=== PATIENT | female | born 1945 | race Native Hawaiian/Other Pacific Islander ===

== ENCOUNTER 2018-12-26 16:26 | Emergency (ER) | payer MEDICARE ==
[2018-12-26] MEDS ORDERED: ZOFRAN IV ONE ×2 (17:10→23:02)
[2018-12-26] MEDS ORDERED: MORPHINE IV ONE ×2 (17:10→23:02)
[2018-12-26] MEDS ORDERED: TYLENOL PO ONE (17:11)
--- NOTE | 2018-12-26 17:13 | Emergency Department Report ---
<YOGI WOLF - Last Filed: 12/26/18 18:01> ED Back Pain/Injury HPI - General Chief Complaint: Back Pain/Injury Stated Complaint: (R) LEG PAIN Time Seen by Provider: 12/26/18 17:09 Source: EMS Limitations: Language Barrier - History of Present Illness Initial Comments: 73-year-old female presents to the emergency room for lower back pain and right leg pain. Patient reports she had surgery on Thursday on her back at [facility]. Patient reports that the pain is gotten worse. Patient reports right leg pain right side back pain headache is frontal sharp and constant. Patient was given a prescription for oxycodone 5 mg extended release tramadol 50 mg Colace and Phenergan. Patient denies any recent falls. Patient reports a past medical history of diabetes and hypertension. Patient reports a past medical history of diabetes, hypertension. She currently has no known drug allergies. MD Complaint: back pain Similar Symptoms Previously: Yes Place: other (headache frontal sharp) Radiation: right leg Severity: severe Severity scale (0 -10): 10 Quality: sharp Consistency: constant Improves With: none Worsens With: none Associated Symptoms: headaches - Related Data Home Medications Medication Instructions Recorded Confirmed Last Taken Citalopram [celeXA] 20 mg PO QDAY 08/21/14 12/26/18 01/15/15 Gabapentin 300 mg PO HS 08/21/14 12/26/18 01/15/15 Lisinopril [Zestril TAB] 2.5 mg PO DAILY 08/21/14 12/26/18 01/15/15 glipiZIDE [Glucotrol] 5 mg PO QDAY 08/21/14 12/26/18 01/15/15 metFORMIN [Glucophage] 850 mg PO TID 08/21/14 12/26/18 01/15/15 Losartan [Cozaar] 25 mg PO QDAY 01/15/15 12/26/18 01/15/15 Docusate Sodium [Stool Softener] 50 mg PO QDAY 12/26/18 12/26/18 Unknown Promethazine [Phenergan] 25 mg PO Q6HR PRN 12/26/18 12/26/18 Unknown oxyCODONE [roxiCODONE] 5 mg PO Q6HR PRN 12/26/18 12/26/18 Unknown traMADol [Ultram] 50 mg PO Q6HR PRN 12/26/18 12/26/18 Unknown Previous Rx's Medication Instructions Recorded Last Taken Type Pantoprazole [Protonix TAB] 40 mg PO QDAY #30 tablet 08/22/14 01/15/15 Rx Allergies Allergy/AdvReac Type Severity Reaction Status Date / Time No Known Allergies Allergy Unverified 08/20/14 12:06 ED Review of Systems Comment: All other systems reviewed and negative ED Past Medical Hx - Past Medical History Previous Medical History?: Yes Hx Hypertension: Yes Hx Diabetes: Yes - Surgical History Past Surgical History?: Yes Additional Surgical History: back surgery - Social History Smoking Status: Unknown if ever smoked Substance Use Type: None - Medications Home Medications: Home Medications Medication Instructions Recorded Confirmed Last Taken Type Citalopram [celeXA] 20 mg PO QDAY 08/21/14 12/26/18 01/15/15 History Gabapentin 300 mg PO HS 08/21/14 12/26/18 01/15/15 History Lisinopril [Zestril TAB] 2.5 mg PO DAILY 08/21/14 12/26/18 01/15/15 History glipiZIDE [Glucotrol] 5 mg PO QDAY 08/21/14 12/26/18 01/15/15 History metFORMIN [Glucophage] 850 mg PO TID 08/21/14 12/26/18 01/15/15 History Pantoprazole [Protonix TAB] 40 mg PO QDAY #30 tablet 08/22/14 12/26/18 01/15/15 Rx Losartan [Cozaar] 25 mg PO QDAY 01/15/15 12/26/18 01/15/15 History Docusate Sodium [Stool Softener] 50 mg PO QDAY 12/26/18 12/26/18 Unknown History Promethazine [Phenergan] 25 mg PO Q6HR PRN 12/26/18 12/26/18 Unknown History oxyCODONE [roxiCODONE] 5 mg PO Q6HR PRN 12/26/18 12/26/18 Unknown History traMADol [Ultram] 50 mg PO Q6HR PRN 12/26/18 12/26/18 Unknown History ED Physical Exam - General Limitations: Language Barrier General appearance: alert, in no apparent distress - Head Head exam: Present: atraumatic, normocephalic - Eye Eye exam: Present: normal appearance - ENT ENT exam: Present: mucous membranes moist - Respiratory Respiratory exam: Present: normal lung sounds bilaterally. Absent: respiratory distress - Cardiovascular Cardiovascular Exam: Present: tachycardia - GI/Abdominal GI/Abdominal exam: Present: soft, normal bowel sounds. Absent: distended, tenderness, guarding, rebound - Extremities Exam Extremities exam: Present: normal inspection, full ROM. Absent: tenderness - Expanded Lower Extremity Exam Right Upper Leg exam: Present: tenderness (posterior) Knee exam: Present: normal inspection, full ROM Ankle exam: Present: normal inspection, full ROM. Absent: tenderness, swelling Neuro vascular tendon exam: Present: no vascular compromise. Absent: extremity cold to touch, pallor - Neurological Exam Neurological exam: Present: alert, oriented X3 - Psychiatric Psychiatric exam: Present: normal affect, normal mood - Skin Skin exam: Present: warm, dry, intact, normal color. Absent: rash ED Medical Decision Making - Lab Data Result diagrams: 12/26/18 17:24 12/26/18 17:24 - Medical Decision Making 73-year-old female presents to the emergency room for lower back pain and right leg pain. Patient reports she had surgery on Thursday on her back at [facility]. Patient reports that the pain is gotten worse. Patient reports right leg pain right side back pain headache is frontal sharp and constant. Patient was given a prescription for oxycodone 5 mg extended release tramadol 50 mg Colace and Phenergan. Patient denies any recent falls. Patient reports a past medical history of diabetes and hypertension. Patient reports a past medical history of diabetes, hypertension. She currently has no known drug allergies. Sepsis protocol has been initiated. Patient also been given morphine 4 mg IV and Zofran 4 mg IV for pain management. CT of lumbar spine has been ordered with contrast. ED Disposition Clinical Impression: Post-operative pain Low back pain Qualifiers: Chronicity: acute Back pain laterality: bilateral Sciatica presence: unspecified whether sciatica present Qualified Code(s): M54.5 - Low back pain Disposition: DC/TX-70 ANOTHER TYPE HLTHCARE Condition: Stable Referrals: PRIMARY CARE, [Primary Care Provider] - 3-5 Days <DAT GOMEZ - Last Filed: 12/28/18 06:22> ED Review of Systems ROS: Stated complaint: (R) LEG PAIN Other details as noted in HPI ED Course Vital Signs 12/26/18 12/26/18 12/26/18 16:52 16:56 17:01 Temperature 100.0 F H Pulse Rate 95 H 98 H 98 H Respiratory 20 21 21 Rate Blood Pressure 171/91 Blood Pressure 144/66 [Left] O2 Sat by Pulse 95 97 Oximetry 12/26/18 12/26/18 12/26/18 18:00 18:45 19:15 Temperature 99.0 F Pulse Rate 86 83 Respiratory 13 20 Rate Blood Pressure 157/73 126/99 Blood Pressure [Left] O2 Sat by Pulse 99 94 Oximetry 12/26/18 12/26/18 12/26/18 19:16 20:00 21:50 Temperature 98.7 F Pulse Rate 83 84 80 Respiratory 16 13 16 Rate Blood Pressure 143/66 Blood Pressure 126/99 145/61 [Left] O2 Sat by Pulse 93 94 95 Oximetry 12/26/18 12/27/18 12/27/18 23:45 00:15 00:25 Temperature Pulse Rate 79 80 90 Respiratory 22 18 15 Rate Blood Pressure 140/60 130/66 130/66 Blood Pressure [Left] O2 Sat by Pulse 95 89 Oximetry 12/27/18 12/27/18 12/27/18 01:00 02:00 03:01 Temperature Pulse Rate 96 H 96 H 84 Respiratory 19 18 18 Rate Blood Pressure 122/61 114/63 120/61 Blood Pressure [Left] O2 Sat by Pulse 96 Oximetry 12/27/18 12/27/18 12/27/18 04:00 05:19 06:07 Temperature 98.4 F Pulse Rate 81 88 86 Respiratory 15 14 17 Rate Blood Pressure 111/60 Blood Pressure 142/64 168/74 [Left] O2 Sat by Pulse 99 99 99 Oximetry 12/27/18 06:38 Temperature Pulse Rate 87 Respiratory 16 Rate Blood Pressure Blood Pressure 147/66 [Left] O2 Sat by Pulse 99 Oximetry - Consultations Consultation #1: 12/26/18 [id number] construction secretary attempted to call [facility] to find patients surgeons name to be able to transfer pt, was given housekeeper number [phone] construction secretary spoke to Romeo housekeeper at [facility] who states he will call back [phone] construction secretary spoke to ashu Waltershousekeeper at [facility] who states that he cannot get into chart [id number] construction secretary spoke to [facility] transfer line and was given number for Dr. Butts, orthopedics service number [phone] construction secretary placed a call to Dr. Butts, orthopedic service [phone] orthopedic space operations service states that PA will call back from Dr. Bonilla service [phone] placed another call, PA has still not called back [phone] construction secretary was informed by call service that they were going to try to get in touch with the Doctor since PA was not calling back [phone] call center called back and now they are going to try to call the materials and processes manager of the practice as the PA or the doctor are not responding 12/27/18 03:00 call center called again after speaking with the practice specialist is attempting again to call the PA and doctor 12/27/18 03:[address] Artis orthoatlanlianna who agrees with transfer of patient, states that Dr. Butts, her surgeon will consult on her in the AM 12/27/18 04:00 spoke with Ashish charge nurse at [facility] who states that the IMS doctor at [facility] needs to speak with Dr. Artis orthopedic 12/27/18 04:[address] Artis orthopedic she accepts transfer of patient, she was given the number to speak with ashish charge nurse at [facility] so she can speak with [facility] for acceptance and transfer 12/27/18 04:24 ashu garciahousekeeper called back and states that Dr. Zabala, [facility] accepts and resumes care of patient, will accept transfer of patient 12/27/18 04:52 pt is going to bed 478 ED Medical Decision Making - Lab Data Result diagrams: 12/26/18 17:24 12/26/18 17:24 Lab Results 12/26/18 12/26/18 12/26/18 Range/Units 17:24 17:24 17:46 WBC 9.7 (4.5-11.0) K/mm3 RBC 3.54 L (3.65-5.03) M/mm3 Hgb 11.1 (10.1-14.3) gm/dl Hct 33.5 (30.3-42.9) % MCV 95 (79-97) fl MCH 31 (28-32) pg MCHC 33 (30-34) % RDW 14.5 (13.2-15.2) % Plt Count 269 (140-440) K/mm3 Lymph % (Auto) 22.4 (13.4-35.0) % Dane % (Auto) 10.4 H (0.0-7.3) % Eos % (Auto) 0.4 (0.0-4.3) % Baso % (Auto) 0.8 (0.0-1.8) % Lymph # 2.2 (1.2-5.4) K/mm3 Dane # 1.0 H (0.0-0.8) K/mm3 Eos # 0.0 (0.0-0.4) K/mm3 Baso # 0.1 (0.0-0.1) K/mm3 Seg Neutrophils % 66.0 (40.0-70.0) % Seg Neutrophils # 6.4 (1.8-7.7) K/mm3 APTT (24.2-36.6) Sec. VBG pH (7.320-7.420) Sodium 137 (137-145) mmol/L Potassium 3.9 (3.6-5.0) mmol/L Chloride 97.7 L (98-107) mmol/L Carbon Dioxide 26 (22-30) mmol/L Anion Gap 17 mmol/L BUN 8 (7-17) mg/dL Creatinine 0.7 (0.7-1.2) mg/dL Estimated GFR > 60 ml/min BUN/Creatinine Ratio 11 % Glucose 244 H (65-100) mg/dL Lactic Acid (0.7-2.0) mmol/L Calcium 8.1 L (8.4-10.2) mg/dL Total Bilirubin 0.30 (0.1-1.2) mg/dL AST 31 (5-40) units/L ALT 26 (7-56) units/L Alkaline Phosphatase 65 (35-129) units/L Total Protein 6.9 (6.3-8.2) g/dL Albumin 3.6 L (3.9-5) g/dL Albumin/Globulin Ratio 1.1 % Urine Color (Yellow) Urine Turbidity (Clear) Urine pH (5.0-7.0) Ur Specific [place] (1.003-1.030) Urine Protein (Negative) mg/dL Urine Glucose (UA) (Negative) mg/dL Urine Ketones (Negative) mg/dL Urine Blood (Negative) Urine Nitrite (Negative) Urine Bilirubin (Negative) Urine Urobilinogen (<2.0) mg/dL Ur Leukocyte Esterase (Negative) Urine WBC (Auto) (0.0-6.0) /HPF Urine RBC (Auto) (0.0-6.0) /HPF U Epithel Cells (Auto) (0-13.0) /HPF Urine Mucus /HPF Blood Type O POSITIVE Antibody Screen Negative 12/26/18 12/26/18 12/26/18 Range/Units 17:46 17:46 19:20 WBC (4.5-11.0) K/mm3 RBC (3.65-5.03) M/mm3 Hgb (10.1-14.3) gm/dl Hct (30.3-42.9) % MCV (79-97) fl MCH (28-32) pg MCHC (30-34) % RDW (13.2-15.2) % Plt Count (140-440) K/mm3 Lymph % (Auto) (13.4-35.0) % Dane % (Auto) (0.0-7.3) % Eos % (Auto) (0.0-4.3) % Baso % (Auto) (0.0-1.8) % Lymph # (1.2-5.4) K/mm3 Dane # (0.0-0.8) K/mm3 Eos # (0.0-0.4) K/mm3 Baso # (0.0-0.1) K/mm3 Seg Neutrophils % (40.0-70.0) % Seg Neutrophils # (1.8-7.7) K/mm3 APTT 26.9 (24.2-36.6) Sec. VBG pH (7.320-7.420) Sodium (137-145) mmol/L Potassium (3.6-5.0) mmol/L Chloride (98-107) mmol/L Carbon Dioxide (22-30) mmol/L Anion Gap mmol/L BUN (7-17) mg/dL Creatinine (0.7-1.2) mg/dL Estimated GFR ml/min BUN/Creatinine Ratio % Glucose (65-100) mg/dL Lactic Acid 2.30 H* 2.10 H* (0.7-2.0) mmol/L Calcium (8.4-10.2) mg/dL Total Bilirubin (0.1-1.2) mg/dL AST (5-40) units/L ALT (7-56) units/L Alkaline Phosphatase (35-129) units/L Total Protein (6.3-8.2) g/dL Albumin (3.9-5) g/dL Albumin/Globulin Ratio % Urine Color (Yellow) Urine Turbidity (Clear) Urine pH (5.0-7.0) Ur Specific [place] (1.003-1.030) Urine Protein (Negative) mg/dL Urine Glucose (UA) (Negative) mg/dL Urine Ketones (Negative) mg/dL Urine Blood (Negative) Urine Nitrite (Negative) Urine Bilirubin (Negative) Urine Urobilinogen (<2.0) mg/dL Ur Leukocyte Esterase (Negative) Urine WBC (Auto) (0.0-6.0) /HPF Urine RBC (Auto) (0.0-6.0) /HPF U Epithel Cells (Auto) (0-13.0) /HPF Urine Mucus /HPF Blood Type Antibody Screen 12/26/18 12/26/18 12/26/18 Range/Units 20:38 21:15 21:15 WBC (4.5-11.0) K/mm3 RBC (3.65-5.03) M/mm3 Hgb (10.1-14.3) gm/dl Hct (30.3-42.9) % MCV (79-97) fl MCH (28-32) pg MCHC (30-34) % RDW (13.2-15.2) % Plt Count (140-440) K/mm3 Lymph % (Auto) (13.4-35.0) % Dane % (Auto) (0.0-7.3) % Eos % (Auto) (0.0-4.3) % Baso % (Auto) (0.0-1.8) % Lymph # (1.2-5.4) K/mm3 Dane # (0.0-0.8) K/mm3 Eos # (0.0-0.4) K/mm3 Baso # (0.0-0.1) K/mm3 Seg Neutrophils % (40.0-70.0) % Seg Neutrophils # (1.8-7.7) K/mm3 APTT (24.2-36.6) Sec. VBG pH 7.355 (7.320-7.420) Sodium (137-145) mmol/L Potassium (3.6-5.0) mmol/L Chloride (98-107) mmol/L Carbon Dioxide (22-30) mmol/L Anion Gap mmol/L BUN (7-17) mg/dL Creatinine (0.7-1.2) mg/dL Estimated GFR ml/min BUN/Creatinine Ratio % Glucose (65-100) mg/dL Lactic Acid 2.30 H* (0.7-2.0) mmol/L Calcium (8.4-10.2) mg/dL Total Bilirubin (0.1-1.2) mg/dL AST (5-40) units/L ALT (7-56) units/L Alkaline Phosphatase (35-129) units/L Total Protein (6.3-8.2) g/dL Albumin (3.9-5) g/dL Albumin/Globulin Ratio % Urine Color Yellow (Yellow) Urine Turbidity Clear (Clear) Urine pH 7.0 (5.0-7.0) Ur Specific [place] 1.028 (1.003-1.030) Urine Protein <15 mg/dl (Negative) mg/dL Urine Glucose (UA) >=500 (Negative) mg/dL Urine Ketones Neg (Negative) mg/dL Urine Blood Sm (Negative) Urine Nitrite Neg (Negative) Urine Bilirubin Neg (Negative) Urine Urobilinogen < 2.0 (<2.0) mg/dL Ur Leukocyte Esterase Tr (Negative) Urine WBC (Auto) 6.0 (0.0-6.0) /HPF Urine RBC (Auto) 3.0 (0.0-6.0) /HPF U Epithel Cells (Auto) 3.0 (0-13.0) /HPF Urine Mucus Few /HPF Blood Type Antibody Screen 12/26/18 Range/Units 22:55 WBC (4.5-11.0) K/mm3 RBC (3.65-5.03) M/mm3 Hgb (10.1-14.3) gm/dl Hct (30.3-42.9) % MCV (79-97) fl MCH (28-32) pg MCHC (30-34) % RDW (13.2-15.2) % Plt Count (140-440) K/mm3 Lymph % (Auto) (13.4-35.0) % Dane % (Auto) (0.0-7.3) % Eos % (Auto) (0.0-4.3) % Baso % (Auto) (0.0-1.8) % Lymph # (1.2-5.4) K/mm3 Dane # (0.0-0.8) K/mm3 Eos # (0.0-0.4) K/mm3 Baso # (0.0-0.1) K/mm3 Seg Neutrophils % (40.0-70.0) % Seg Neutrophils # (1.8-7.7) K/mm3 APTT (24.2-36.6) Sec. VBG pH (7.320-7.420) Sodium (137-145) mmol/L Potassium (3.6-5.0) mmol/L Chloride (98-107) mmol/L Carbon Dioxide (22-30) mmol/L Anion Gap mmol/L BUN (7-17) mg/dL Creatinine (0.7-1.2) mg/dL Estimated GFR ml/min BUN/Creatinine Ratio % Glucose (65-100) mg/dL Lactic Acid 1.90 (0.7-2.0) mmol/L Calcium (8.4-10.2) mg/dL Total Bilirubin (0.1-1.2) mg/dL AST (5-40) units/L ALT (7-56) units/L Alkaline Phosphatase (35-129) units/L Total Protein (6.3-8.2) g/dL Albumin (3.9-5) g/dL Albumin/Globulin Ratio % Urine Color (Yellow) Urine Turbidity (Clear) Urine pH (5.0-7.0) Ur Specific [place] (1.003-1.030) Urine Protein (Negative) mg/dL Urine Glucose (UA) (Negative) mg/dL Urine Ketones (Negative) mg/dL Urine Blood (Negative) Urine Nitrite (Negative) Urine Bilirubin (Negative) Urine Urobilinogen (<2.0) mg/dL Ur Leukocyte Esterase (Negative) Urine WBC (Auto) (0.0-6.0) /HPF Urine RBC (Auto) (0.0-6.0) /HPF U Epithel Cells (Auto) (0-13.0) /HPF Urine Mucus /HPF Blood Type Antibody Screen - Radiology Data Radiology results: report reviewed CT of the lumbar spine INDICATION: Fever following recent back surgery FINDINGS: There are postoperative changes at the L4-L5 level. There has been laminectomy at this level with air and postoperative changes seen on the right side laminectomy defect. There is a large amount of soft tissue in the spinal canal and a bony fragment just posterior to the L4 vertebral body. Facet arthropathy is seen and with bulging discs, ligamentous hypertrophy and postoperative changes resulting in possible spinal stenosis. No definite abscess or drainable fluid collection seen however. There is central disc protrusion at L5-S1 with the L3-L4, L2-L3 and L1-L2 levels showing no significant abnormalities. IMPRESSION: Postoperative changes L4-L5. There is no definite epidural abscess o r drainable fluid collection. There appears to be a bone fragment within the spinal canal at this same level. All CT scans at this location are performed using CT dose reduction for ALARA by means of automated exposure control Signer Name: Itz Nielsen MD Signed: 12/26/2018 9:17 PM Workstation Name: [id number] Transcribed By: REZA Dictated By: Itz Nielsen MD Electronically Authenticated By: Itz Nielsen MD Signed Date/Time: 12/26/182116 - Medical Decision Making 6:00 PM s/o by Farhana Wolf PA-C pending CT L-spine results CT L-spine: There are postoperative changes at the L4-L5 level. There has been laminectomy at this level with air and postoperative changes seen on the right side laminectomy defect. There is a large amount of soft tissue in the spinal canal and a bony fragment just posterior to the L4 vertebral body. Facet arthropathy is seen and with bulging discs, ligamentous hypertrophy and postoperative changes resulting in possible spinal stenosis. No definite abscess or drainable fluid collection seen however. There is central disc protrusion at L5-S1 with the L3-L4, L2-L3 and L1-L2 levels showing no significant abnormalities. no leukocytosis, elevated lactic acid at 2.3 which improved to normal, pt given multiple pain medications but still unable to get pain fully under control, spoke with Dr. Artis, orthopedic at [facility] who will accept transfer of patient to [facility] so she can be evaluated by her surgeon in the AM, jose, housekeeper called back and states that Dr. Zabala, [facility] accepts and resumes care of patient, will accept transfer of patient. pt transferred to [facility]. Critical care attestation.: If time is entered above; I have spent that time in minutes in the direct care of this critically ill patient, excluding procedure time. ED Disposition Is pt being admited?: No Does the pt Need Aspirin: No
[2018-12-26] MEDS ORDERED: NACL 0.9% 1000 ML IV ONE (17:20)
[2018-12-26] MEDS ORDERED: VANCOMYCIN/NS 1 GM/250 ML 1 GM/250 ML BAG IV ONE (17:22)
[2018-12-26] MEDS ORDERED: CEFEPIME/NS 1 GM/100 ML 1 GM/100 ML BAG IV ONE (17:22)
[2018-12-26 17:45] LABS: Basophils # (Auto) 0.1 K/mm3 (0.0-0.1); Basophils % (Auto) 0.8 % (0.0-1.8); Eosinophils % (Auto) 0.4 % (0.0-4.3); Hematocrit 33.5 % (30.3-42.9); Hemoglobin 11.1 gm/dl (10.1-14.3); Lymphocytes # (Auto) 2.2 K/mm3 (1.2-5.4); Lymphocytes % (Auto) 22.4 % (13.4-35.0); Mean Corpuscular HGB Conc 33 % (30-34); Mean Corpuscular Volume 95 fl (79-97); Monocytes % (Auto) 10.4 % (0.0-7.3); Platelet Count 269 K/mm3 (140-440); Red Blood Count 3.54 M/mm3 (3.65-5.03); Red Cell Distribution Width 14.5 % (13.2-15.2)
[2018-12-26 18:00] LABS: Alanine Aminotransferase 26 units/L (7-56); Albumin 3.6 g/dL (3.9-5); BUN/Creatinine Ratio 11; Blood Urea Nitrogen 8 mg/dL (7-17); Calcium 8.1 mg/dL (8.4-10.2); Hemolysis Index 7
[2018-12-26] MEDS ORDERED: VANCOMYCIN 1,750 MG in NACL 0.9% 500 ML 500 ML IV ONE (18:00)
[2018-12-26 20:58] LABS: Bilirubin,Urine NEG (Negative); Blood,Urine SM (Negative); Color,Urine Yellow (Yellow); Mucus,Urine FEW /HPF; Protein,Urine <15 mg/dL mg/dL (Negative); Urobilinogen,Urine < 2.0 mg/dL (<2.0)
--- NOTE | 2018-12-26 21:22 | Cat Scan Report ---
CT of the lumbar spine INDICATION: Fever following recent back surgery FINDINGS: There are postoperative changes at the L4-L5 level. There has been laminectomy at this leve l with air and postoperative changes seen on the right side laminectomy defect. There is a large amou nt of soft tissue in the spinal canal and a bony fragment just posterior to the L4 vertebral body. Fa cet arthropathy is seen and with bulging discs, ligamentous hypertrophy and postoperative changes res ulting in possible spinal stenosis. No definite abscess or drainable fluid collection seen however. T here is central disc protrusion at L5-S1 with the L3-L4, L2-L3 and L1-L2 levels showing no significan t abnormalities. IMPRESSION: Postoperative changes L4-L5. There is no definite epidural abscess or drainable fluid col lection. There appears to be a bone fragment within the spinal canal at this same level. All CT scans at this location are performed using CT dose reduction for ALARA by means of automated e xposure control Signer Name: Itz Nielsen MD Signed: 12/26/2018 9:17 PM Workstation Name: [id number]
[2018-12-26] MEDS ORDERED: ZOFRAN ONE (23:05)
[2018-12-26] MEDS ORDERED: MORPHINE ONE (23:05)
[2018-12-26] MEDS ORDERED: LIORESAL ONE (23:56)
[2018-12-27] MEDS ORDERED: DILAUDID ONE ×2 (00:50→06:06)
[2018-12-27] MEDS ORDERED: DILAUDID IV ONE ×3 (00:51→06:47)
[2018-12-27] MEDS ORDERED: NACL 0.9% 1000 ML 2,000 ML ONE (01:51)
[2018-12-27 06:39] VITALS: BP 147/66
[2018-12-27] MEDS ORDERED: LIORESAL PO ONE (23:51)
== END 2018-12-27 06:50 | disposition other institution (70) ==
LOC: ED 16:26
DX: M96.89 Other intraoperative and postprocedural complications and disorders of the musculoskeletal system (principal); M54.5 Low back pain; M54.89 Other dorsalgia; I10 Essential (primary) hypertension; E11.9 Type 2 diabetes mellitus without complications; Z79.899 Other long term (current) drug therapy; Z98.890 Other specified postprocedural states
CPT/HCPCS: 36415; 72132; 80053; 81001; 82140; 82805; 85025; 85730; 86850; 86900; 86901; 87040; 96365; 96366; 96367; 96375; 96376; 99285; J0692; J1170; J2270; J2405; J3370; J7030; J7040